=== PATIENT | male | born 1955 | race African-American/Black ===

== ENCOUNTER 2019-09-24 16:43 | Emergency (ER) | payer MEDICARE ==
[2019-09-24] MEDS ORDERED: HYDROmorphone 0.5 MG/0.5 ML SYRINGE ONE ×2 (17:22→18:35)
--- NOTE | 2019-09-24 17:22 | RAD ---
Left elbow 2 views HISTORY: Injury. FINDINGS: 2 oblique views are included. There is extremely comminuted fracture involving the proximal ulna with one quarter shaft width volar displacement of the major fragment and mild apex volar angulation. There are innumerable ossific fragments and overlying soft tissue swelling. Articular roma face of the ulna is not visualized with these views to evaluate for intra-articular extension of fracture. Radiocapitellar alignment is favored to be maintained. Fluid distention of the joint capsule is appar ent. IMPRESSION : Extensively comminuted mildly displaced and angulated proximal left ulnar fracture.
[2019-09-24] MEDS ORDERED: Ondansetron PF 4 MG/2 ML Vial ONE (18:35)
== END 2019-09-24 18:56 | disposition short-term general hospital (02) ==
LOC: MADERS 16:43
DX: S52.002A Unspecified fracture of upper end of left ulna, initial encounter for closed fracture (principal); S52.92XA Unspecified fracture of left forearm, initial encounter for closed fracture; F17.210 Nicotine dependence, cigarettes, uncomplicated; W21.11XA Struck by baseball bat, initial encounter
CPT/HCPCS: 29125; 96374; 96376; J1170; J2405